=== PATIENT | male | born 1950 | race American Indian/Alaskan Native ===

== ENCOUNTER 2021-04-10 10:22 | Emergency (ER) | payer MEDICARE ==
--- NOTE | 2021-04-10 11:56 | Emergency Department Report ---
ED Extremity Problem HPI - General Chief complaint: Extremity Problem,Nontraumatic Stated complaint: BLOOD BRUISES Time Seen by Provider: 04/10/21 11:40 Source: patient Mode of arrival: Wheelchair Limitations: No Limitations - History of Present Illness Initial comments: Patient came in because he noted bruising to his left little finger. This started a week ago. He was taking ibuprofen at the time. His regular doctor told him to stop taking ibuprofen. He noticed some ongoing bruising. He called his regular doctor and was told to come to the emergency department. He had seen his oncologist about 2 weeks ago. Blood work at that time was normal. He is not on any type of regiment to cause bruising. He is not anticoagulated. 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 He felt a pinching sensation in his left little finger and thinks that may have been the cause. He does not notice bruising in other places. He has no hematuria or melena. - Related Data Allergies Allergy/AdvReac Type Severity Reaction Status Date / Time Penicillins AdvReac Diarrhea Verified 04/10/21 11:04 ED Review of Systems ROS: Stated complaint: BLOOD BRUISES Other details as noted in HPI Comment: All other systems reviewed and negative Constitutional: denies: fever Eyes: denies: eye pain ENT: denies: throat pain Respiratory: denies: cough Cardiovascular: denies: chest pain Endocrine: denies: unexplained weight loss Gastrointestinal: denies: hematemesis Genitourinary: denies: hematuria Musculoskeletal: denies: joint swelling Skin: as per HPI Neurological: denies: paresthesias Hematological/Lymphatic: denies: easy bruising ED Past Medical Hx - Past Medical History Previous Medical History?: Yes Hx Hypertension: Yes Hx Diabetes: Yes (borderline) - Surgical History Past Surgical History?: Yes Additional Surgical History: sphincter; tonsils, knee replacement - Family History Family history: no significant ED Physical Exam - General Limitations: No Limitations General appearance: alert, in no apparent distress - Head Head exam: Present: atraumatic, normocephalic, normal inspection - Eye Eye exam: Present: normal appearance, EOMI. Absent: scleral icterus, conjunctival injection - ENT ENT exam: Present: normal exam, normal orophraynx, mucous membranes moist - Neck Neck exam: Present: normal inspection. Absent: meningismus - Respiratory Respiratory exam: Absent: respiratory distress - Cardiovascular Cardiovascular Exam: Present: other (Normal pulses) - GI/Abdominal GI/Abdominal exam: Present: other (Flat) - Extremities Exam Extremities exam: Present: normal capillary refill, other (Patient has 2 areas of ecchymoses to the left hand. One is over the distal phalanx of the little finger. This is in the ulnar aspect. The other is over the left MCP area, ulnar side.). Absent: tenderness, pedal edema, joint swelling - Back Exam Back exam: Present: full ROM - Neurological Exam Neurological exam: Present: alert, oriented X3. Absent: motor sensory deficit - Psychiatric Psychiatric exam: Present: normal affect, normal mood - Skin Skin exam: Present: warm, dry ED Course - Reevaluation(s) Reevaluation #1: 04/10/21 11:55 Patient was discharged. ED Medical Decision Making - Medical Decision Making Patient presents with 2 small bruised areas of the left little finger and hand. He does report a history of trauma. There is no other symptomatology suggestive of platelet dysfunction. He has chronic anemia that does not appear to be worsened by his history. He does not seem to have any evidence of coagulopathy. He had blood work 2 weeks ago that was unremarkable by his report. I do not believe he requires further evaluation. He was reassured and discharged. He has no other rash that would suggest syphilis or any type of [place] spotted fever or Lyme disease. Critical Care Time: No Critical care attestation.: If time is entered above; I have spent that time in minutes in the direct care of this critically ill patient, excluding procedure time. ED Disposition Clinical Impression: Superficial bruising of finger Qualifiers: Encounter type: initial encounter Finger: little finger Damage to nail status: without damage Laterality: left Qualified Code(s): S60.052A - Contusion of left little finger without damage to nail, initial encounter Disposition: HOME / SELF CARE / HOMELESS Is pt being admited?: No Does the pt Need Aspirin: No Condition: Stable Instructions: How to Use Cold Therapy, Contusion Additional Instructions: Ice and elevate. Return for problems. Follow-up with your regular doctor for recheck. Referrals: PRIMARY CARE, [Referring] - 3-5 Days
[2021-04-10 12:50] VITALS: BP 131/52
== END 2021-04-10 12:50 | disposition home or self-care (01) ==
LOC: ED 10:22
DX: S60.052A Contusion of left little finger without damage to nail, initial encounter (principal); I10 Essential (primary) hypertension; E11.8 Type 2 diabetes mellitus with unspecified complications; Z98.890 Other specified postprocedural states; X58.XXXA Exposure to other specified factors, initial encounter; Y93.89 Activity, other specified; Y92.89 Other specified places as the place of occurrence of the external cause; Y99.8 Other external cause status
CPT/HCPCS: 99282